=== PATIENT | male | born 1985 | race Hispanic/Latino ===

== ENCOUNTER 2017-05-07 16:49 | Emergency (ER) | payer SELFPAY ==
[2017-05-07] MEDS ORDERED: DEXAMETHASONE SOD PHOSPHATE 10MG/ML 1ML VIAL ONE (17:19)
[2017-05-07] MEDS ORDERED: CYCLOBENZAPRINE HCL 10 MG TABLET ONE (17:19)
[2017-05-07] MEDS ORDERED: KETOROLAC TROMETHAMINE 60 MG/2 ML VIAL ONE (17:19)
[2017-05-07] MEDS ORDERED: MORPHINE SULFATE 2 MG/ML 1ML SYG ONE (17:45)
== END 2017-05-07 18:01 | disposition home or self-care (01) ==
LOC: EDH 16:49
DX: R53.1 Weakness (principal); M54.16 Radiculopathy, lumbar region; Z88.0 Allergy status to penicillin; Z72.0 Tobacco use
CPT/HCPCS: 72100; 96372 ×2; 99284; J1100; J1885